=== PATIENT | female | born 1980 | race Caucasian/White ===

== ENCOUNTER 2020-01-14 20:24 | Emergency (ER) | payer MEDICAID ==
[~2020-01-14] VITALS: Ht 154.9 cm; Wt 44.0 kg
[2020-01-14 20:57] VITALS: Ht 154.9 cm; Wt 44.0 kg
[2020-01-14 23:13] VITALS: BP 110/73
== END 2020-01-14 22:55 | disposition home or self-care (01) ==
LOC: ED 20:24
DX: L93.0 Discoid lupus erythematosus (principal); G89.29 Other chronic pain
CPT/HCPCS: J8540